=== PATIENT | female | born 1960 | race Caucasian/White ===

== ENCOUNTER 2022-03-17 15:36 | Emergency (ER) | payer MEDICARE, BC ==
[~2022-03-17] VITALS: Ht 172.7 cm; Wt 66.8 kg
[2022-03-17] MEDS ORDERED: NS 1,000 ML IV ONE (16:45)
[2022-03-17 17:08] LABS: BASO % 0.6 % (0.0-1.0); EOS # 0.1 10^3/uL (0.0-0.5); EOS % 1.2 % (0.0-3.0); HEMATOCRIT 30.8 % (36.0-47.0); HEMOGLOBIN 10.1 g/dl (12.0-15.5); MEAN CORPUSCULAR HEMOGLOBIN 29.6 pg (27.0-33.0); MEAN CORPUSCULAR HGB CONC 32.8 g/dl (32.0-36.5); MEAN CORPUSCULAR VOLUME 90.3 fl (80.0-96.0); MONO # 0.8 10^3/uL (0.0-0.8); MONO % 11.2 % (2.0-8.0); NEUTROPHILS # 5.2 10^3/uL (1.5-8.5); NEUTROPHILS % 72.4 % (36.0-66.0); PLATELET COUNT, AUTOMATED 145 10^3/uL (150-450); RED BLOOD COUNT 3.41 10^6/uL (4.00-5.40); WHITE BLOOD COUNT 7.2 10^3/uL (4.0-10.0)
[2022-03-17 17:18] LABS: INR 1.02; PROTHROMBIN TIME 13.8 SECONDS (12.7-14.5)
[2022-03-17 17:19] LABS: PARTIAL THROMBOPLASTIN TIME 29.7 SECONDS (25.9-37.0)
[2022-03-17 17:35] LABS: CK-MB VALUE MASS 1.4 NG/ML (<3.6); MB/CK RELATIVE INDEX 1.36 (< OR =4)
[2022-03-17] MEDS ORDERED: FAMO20TA PO (17:39)
[2022-03-17] MEDS ORDERED: PANT40TA29 PO (17:39)
[2022-03-17] MEDS ORDERED: ELIQ5TAB PO (17:39)
[2022-03-17] MEDS ORDERED: GABA600T4 PO (17:39)
[2022-03-17] MEDS ORDERED: VENL75TA2 PO (17:39)
[2022-03-17] MEDS ORDERED: TRAD5TAB PO (17:39)
[2022-03-17] MEDS ORDERED: SYNT50TA PO (17:39)
[2022-03-17] MEDS ORDERED: ATOR80TA59 PO (17:39)
[2022-03-17] MEDS ORDERED: METF-817 PO (17:39)
[2022-03-17 17:41] LABS: ALBUMIN 3.5 GM/DL (3.2-5.2); ALT/SGPT 27 U/L (12-78); BILIRUBIN,DIRECT < 0.1 MG/DL (0.0-0.2); BILIRUBIN,TOTAL 0.3 MG/DL (0.2-1.0); BLOOD UREA NITROGEN 23 MG/DL (7-18); CALCIUM LEVEL 8.6 MG/DL (8.8-10.2); CARBON DIOXIDE LEVEL 26 MEQ/L (21-32); CHLORIDE LEVEL 105 MEQ/L (98-107); CREATININE FOR GFR 1.77 MG/DL (0.55-1.30); FREE T4 0.97 NG/DL (0.76-1.46); GLOMERULAR FILTRATION RATE 30.9 (>45); GLUCOSE, FASTING 145 MG/DL (70-100); LIPASE 329 U/L (73-393); NT-PRO BNP 388 PG/ML (<125); POTASSIUM SERUM 4.1 MEQ/L (3.5-5.1); SODIUM LEVEL 139 MEQ/L (136-145); TOTAL PROTEIN 6.2 GM/DL (6.4-8.2)
[2022-03-17] MEDS ORDERED: AMLO1TAB24 PO (17:43)
[2022-03-17] MEDS ORDERED: CITRTAB18 PO (17:43)
[2022-03-17 18:47] LABS: CK-MB VALUE MASS 1.5 NG/ML (<3.6); MB/CK RELATIVE INDEX 3.57 (< OR =4)
[2022-03-17 20:40] LABS: CALCIUM LEVEL 8.3 MG/DL (8.8-10.2); CREATININE FOR GFR 1.66 MG/DL (0.55-1.30); GLOMERULAR FILTRATION RATE 33.3 (>45); POTASSIUM SERUM 4.3 MEQ/L (3.5-5.1)
[2022-03-17 20:45] LABS: CK-MB VALUE MASS 1.7 NG/ML (<3.6); MB/CK RELATIVE INDEX 4.36 (< OR =4)
[2022-03-17 21:01] VITALS: BP 184/74
== END 2022-03-17 21:35 | disposition home or self-care (01) ==
LOC: EDBD 15:36 → M ED 15:36
DX: R00.2 Palpitations (principal); N18.30 Chronic kidney disease, stage 3 unspecified; E86.0 Dehydration; I48.0 Paroxysmal atrial fibrillation; E11.9 Type 2 diabetes mellitus without complications; Z86.73 Personal history of transient ischemic attack (TIA), and cerebral infarction without residual deficits; Z79.01 Long term (current) use of anticoagulants; Z79.84 Long term (current) use of oral hypoglycemic drugs; Z79.899 Other long term (current) drug therapy; Z88.6 Allergy status to analgesic agent; Z88.8 Allergy status to other drugs, medicaments and biological substances